=== PATIENT | female | born 1990 | race Caucasian/White ===

== ENCOUNTER 2023-08-14 06:00 | Outpatient (OUT) | payer OTHER, SELFPAY ==
--- NOTE | 2023-08-14 | XR_ITS ---
The [address] [address] Patient Name: OSWALDO DAILEY MRN: [id number] date: 1990 Sex: F Assigned Patient Location: LAB Current Patient Location: LAB Accession/Order Number: [id number] Exam Date: 08/14/2023 13:48 Report Date: 08/15/2023 08:16 At the request of: REGINALD TEE Procedure: XR ankle LING min 3V EXAMINATION: XR ankle LING min 3V HISTORY: G89.29 ; bilateral ankle pain, no known injury COMPARISON: No relevant comparison available. FINDINGS: RIGHT FINDINGS: BONES: No significant arthropathy or acute abnormality. SOFT TISSUES: No visible soft tissue swelling. OTHER: Negative. LEFT FINDINGS: BONES: No significant arthropathy or acute abnormality. SOFT TISSUES: No visible soft tissue swelling. OTHER: Negative. XR/XR ankle LING min 3V IMPRESSION: RIGHT CONCLUSION: No acute bone abnormality or appreciable degenerative changes. LEFT CONCLUSION: No acute bone abnormality or appreciable degenerative changes. Electronically authenticated by: BRENNAN GUNTER Date: 08/15/2023 08:16
== END 2023-08-14 06:01 | disposition home or self-care (01) ==
LOC: LAB 08-16 08:12
PROVIDERS: PCP Nurse Practitioner Family; Visit Provider Nurse Practitioner Family
DX: M25.571 Pain in right ankle and joints of right foot (principal); M25.572 Pain in left ankle and joints of left foot; G89.29 Other chronic pain
CPT/HCPCS: 73610

== ENCOUNTER 2024-03-26 07:44 | Outpatient (OUT) | payer OTHER, SELFPAY ==
--- OUTSIDE RECORDS SUMMARY | 2024-03-26 08:04 | XMS_ITS | CCD ---
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 Primary Care Unavailable Unavailable Primary Care Provider Unavailabl e Unavailable Primary Care Provider Unavailabl e JAZMÍN MATHIAS Referring Unavailable STEWBRYANJAZMÍN C Referring Unavailable STEWJAZMÍN C Referring Unavailable STEWJAZMÍN C Referring Unavailable POLI WILSON Referring Unavailable STEWJAZMÍN C Referring Unavailable KAIT GARCIA Referring Unavail able STEWJAZMÍN DOWNEY Referring Unavailable KAIT GARCIA Referring Unavail able STEW JAZMÍN C Admitting Unavailable KAIT GARCIA Attending Unavail able Lashell Fernandez Unavailable GOPI MORALES Attending Unavailable LORA KNOTT Attending Unavailable LASHELL FERNANDEZ Referring Unavailab le Medications Current Medications Medication Drug Class(es) Dates Sig (Normalized) Sig (Original) cephalexin 500 mg oral capsule (1 source) Cephalosporin Antibacterial Start: 03-28-2022 End: 04-04-2022 take 1 capsule by mouth twice daily cephALEXin (KEFLEX) 500 MG capsule Indications: Infection of superficial incisional site of obstetric surgical wound Take 1 capsule by mouth 2 times daily for 7 days 14 capsule 0 03/28/2022 04/04/2022 Active docusate sodium 100 mg oral capsule (1 source) Start: 03-09-2022 take 1 capsule by mouth twice daily docusate sodium (COLACE) 100 MG capsule Take 1 capsule by mouth 2 times daily 30 capsule 0 03/09/2022 Active ferrous sulfate 325 mg oral tablet (2 sources) Start: 02-15-2022 take 1 tablet by mouth once daily ferrous sulfate (IRON 325) 325 (65 Fe) MG tablet Take 1 tablet by mouth daily 30 tablet 6 02/15/2022 Active ibuprofen 800 mg oral tablet (1 source) Nonsteroidal Anti-inflammatory Drug Start: 03-09-2022 take 1 tablet by mouth every eight hours as needed for pain ibuprofen (ADVIL;MOTRIN) 800 MG tablet Take 1 tablet by mouth every 8 hours as needed for Pain 120 tablet 0 03/09/2022 Active [place] (No Known Home Meds) (1 source) Start: 03-19-2024 [place] (No Known Home Meds) Active March 19, 2024 12:00am MV-Min-Fe Fum-FA-DHA ( 1 PO) (5 sources) MV-Min-Fe Fum-FA-DHA ( 1 PO) Take by mouth 0 Active simethicone 80 mg chewable tablet (1 source) Start: 03-09-2022 take 1 tablet by mouth every six hours as needed simethicone (MYLICON) 80 MG chewable tablet Take 1 tablet by mouth every 6 hours as needed (gas) 30 tablet 0 03/09/2022 Active Completed/Discontinued Medications Medication Drug Class(es) Dates Sig (Normalized) Sig (Original) amoxicillin 875 mg / clavulanate 125 mg oral tablet (1 source) Penicillin-class Antibacterial Start: 12-29-2023 End: 03-19-2024 take 1 tablet by mouth twice daily Amoxicillin-Pot Clavulanate Discontinued 1 TAB PO Twice daily 20 December 29, 2023 1:00am March 19, 2024 8:05am escitalopram 10 mg oral tablet (7 sources) Serotonin Reuptake Inhibitor Start: 12-28-2023 End: 03-19-2024 take 10 mg by mouth once daily Escitalopram Oxalate Discontinued 10 MG PO Daily December 28, 2023 1:00am March 19, 2024 8:13am Start: 10-25-2021 take 1 tablet by cathryn th once daily escitalopram (LEXAPRO) 10 MG tablet TAKE 1 TABLET BY MOUTH EVERY DAY 30 tablet 11 08/23/2022 Active Problems Active Problems Problem Classification Problem Date Documented Da te Episodic/Chronic Anxiety disorders (1 source) Anxiety; Translations: [Anxiety disorder, unspecified] 12-28-2023 Chronic Malaise and fatigue (2 sources) Fatigue; Translations: [Other fatigue] 03-19-2024 Episodic Mood disorders (1 source) Depressive disorder; Translations: [Depression] 12-28-2023 Chronic Mood disorders (2 sources) Disturbance in mood; Translations: [Emotional lability] 03-19-2024 Episodic Other complications of ; puerperium affecting management of mother (1 source) Infection of obstetric surgical wound ; Translations: [Infection of obstetric surgical wound, superficial incisional site] Episodic Other complications of ; puerperium affecting management of mother (2 sources) delivery - delivered; Translations: [Encounter for delivery without indication] 03-08-2022 Episodic Other ear and sense organ disorders (1 source) Unspecified hearing loss, unspecified ear Chronic Other nervous system disorders (4 sources) Chronic pain; Translations: [Other chronic pain] 12-28-2023 Chronic Other nutritional; endocrine; and metabolic disorders (1 source) Failure to lose weight; Translations: [Other symptoms and signs concerning food and fluid intake] 03-19-2024 Episodic Other nutritional; endocrine; and metabolic disorders (1 source) Other symptoms and signs concerning food and fluid intake; Translations: [Other symptoms concerning nutrition, metabolism, and development] 03-19-2024 Episodic Other upper respiratory infections (2 sources) Maxillary sinusitis; Translations: [Chronic maxillary sinusitis] 12-29-2023 Chronic Residual codes; unclassified (1 source) Gestation period, 25 weeks; Translations: [25 weeks gestation of ] Episodic Residual codes; unclassified (2 sources) Gestation period, 40 weeks; Translations: [40 weeks gestation of ] 03-07-2022 Episodic Residual codes; unclassified (1 source) History of emergency section; Translations: [History of uterine scar from previous surgery] 03-07-2022 Episodic Past or Other Problems Problem Classification Problem Date Documented Da te Episodic/Chronic Other complications of ; puerperium affecting management of mother (1 source) Infection of obstetric surgical wound, superficial incisional site; Translations: [Infection of obstetric surgical wound, superficial incisional site] Onset: 03-28-2022 Episodic Other complications of ; puerperium affecting management of mother (1 source) Encounter for delivery without indication; Translations: [Encounter for delivery without indication] Onset: 03-08-2022 Episodic Other complications of (1 source) Uterine size-date discrepancy, third trimester; Translations: [Uterine size-date discrepancy, third trimester] Onset: 02-10-2022 Episodic Other and delivery including normal (8 sources) Normal ; Translations: [Encounter for supervision of other normal , first trimester] Onset: 08-24-2021 Episodic Other screening for suspected conditions (not mental disorders or infectious disease) (1 source) Encounter for screening, unspecified; Translations: [Encounter for screening, unspecified] Onset: 10-25-2021 Episodic Prolonged (1 source) Post-term ; Translations: [Post-term ] Onset: 03-07-2022 Episodic Residual codes; unclassified (1 source) 40 weeks gestation of ; Translations: [40 weeks gestation of ] Onset: 03-07-2022 Episodic Residual codes; unclassified (1 source) 36 weeks gestation of ; Translations: [36 weeks gestation of ] Onset: 02-10-2022 Episodic Residual codes; unclassified (1 source) 25 weeks gestation of ; Translations: [25 weeks gestation of ] Onset: 12-29-2021 Episodic Residual codes; unclassified (1 source) 30 weeks gestation of ; Translations: [30 weeks gestation of ] Onset: 12-29-2021 Episodic Residual codes; unclassified (1 source) 21 weeks gestation of ; Translations: [21 weeks gestation of ] Onset: 10-25-2021 Episodic NEGATED: Highlighted row has been ruled out!Unclassified (3 sources) No known active problems 11-23-2021 Results Test Name Value Interpretation Reference Range Facility HPV DNA High Riskon 08-25-20 22 HPV Interp Normal [facility] Comment on above: Result Comment: This test amplifies and detects DNA of 14 high-risk HPV types associated with cervical cancer and its precursor lesions (HPV types 16,18, 31, 33, 35, 39, 45, 51, 52, 56, 58, 59, 66, and 68). Sensitivity may be affected by specimen collection methods, stage of infection, and the presence of interfering substances. Results should be interpreted in conjunction with other available laboratory and clinical data. A negative high-risk HPV result does not exclude the possibility of future cytologic HSIL or underlying CIN2-3 or cancer. This test is intended for medical purposes only and is not valid for the evaluation of suspected sexual abuse or for other forensic purposes. Performed By: #### H PVH #### [address] [address] [employer] Bob[employer] Winder: Eric Neville MD HPV Type 16 Not detected [facility] Comment on above: Performed By: #### H PVH #### [address] [address] [employer] Winder: Eric Neville MD HPV Type 18 Not detected [facility] Comment on above: Performed By: #### H PVH #### [address] [address] [employer] Winder: Eric Neville MD Other High Risk HPV Not detected [facility] Comment on above: Performed By: #### H PVH #### [address] [address] [employer] Winder: Eric Neville MD HPV DNA High Riskon 08-24-20 22 Source .CERVIX [facility] Comment on above: Performed By: #### H PVH #### [address] [address] [employer] Winder: Eric Neville MD HPV Sample .THIN PREP [facility] Comment on above: Performed By: #### H PVH #### [address] [address] [employer] Winder: Eric Neville MD Cytologyon 08-23-2022 Cytology (NOTE) INTERPRETATION Cervical material, (ThinPrep vial, Imaging-assisted review): Specimen Adequacy: Satisfactory for evaluation. -Endocervical/transf ormation zone component is absent. Descriptive Diagnosis: Negative for intraepithelial lesion or malignancy. Administrative Program Specialist: ROX [place](ASCP) Electronically Signed Out ss/08/29/2022 Procedure/Addendum HPV Procedure Report Date Ordered: 08/24/2022 Status: Signed Out Date Complete: 08/25/2022 By: System Interface Date Reported: 08/25/2022 Sample: HPV Type 16 Result: Not Detected Ref Range: (Not Detected) Sample: HPV Type 18 Result: Not Detected Ref Range: (Not Detected) Sample: Other High Risk HPV Result: Not Detected Ref Range: (Not Detected) Sample: HPV Interp Result: Ref Range: (Not Detected) This test amplifies and detects DNA of 14 high-risk HPV types associated with cervical cancer and its precursor lesions (HPV types 16,18, 31, 33, 35, 39, 45, 51, 52, 56, 58, 59, 66, and 68). Sensitivity may be affected by specimen collection methods, stage of infection, and the presence of interfering substances. Results should be interpreted in conjunction with other available laboratory and clinical data. A negative high-risk HPV result does not exclude the possibility of future cytologic HSIL or underlying CIN2-3 or cancer. This test is intended for medical purposes only and is not valid for the evaluation of suspected sexual abuse or for other forensic purposes. 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 Co-Test: ThinPrep Pap with high risk HPV testing GYNECOLOGIC CYTOLOGY REPORT Patient Name: OSWALDO DAILEY [facility] Rec: [id number] Path Number: [id number] [facility] [address] [place] [id number] [facility] Comment on above: Performed By: #### P PPVP #### [employer] [address] [place] [id number] Machine Bob[employer] Winder: Eric Neville MD Cult,Woundon 03-31-2022 Cult,Wound Specimen Description .INCISION Direct Exam RARE NEUTROPHILS MANY GRAM POSITIVE COCCI IN PAIRS FEW GRAM NEGATIVE RODS Culture CITROBACTER BRAAKII LIGHT GROWTH ESCHERICHIA COLI LIGHT GROWTH NORMAL SKIN LILIANA MODERATE GROWTH Report Status FINAL 03/31/2022 SUSCEPTIBILITY Organism CITROBACTER BRAAKII Method ABIODUN Aztreonam <=1 SUSCEPTIBLE Cefazolin >=64 RESISTANT Ceftriaxone <=1 SUSCEPTIBLE Ciprofloxacin <=0.25 SUSCEPTIBLE Gentamicin <=1 SUSCEPTIBLE Tobramycin <=1 SUSCEPTIBLE Trimethoprim/Sulfa <=20 SUSCEPTIBLE Piperacillin/Tazobac valencia <=4 SUSCEPTIBLE SUSCEPTIBILITY Organism ESCHERICHIA COLI Method ABIODUN Ampicillin <=2 SUSCEPTIBLE Aztreonam <=1 SUSCEPTIBLE Cefazolin <=4 SUSCEPTIBLE Ceftriaxone <=1 SUSCEPTIBLE Ciprofloxacin <=0.25 SUSCEPTIBLE ESBL NEGATIVE Gentamicin <=1 SUSCEPTIBLE Tobramycin <=1 SUSCEPTIBLE Trimethoprim/Sulfa <=20 SUSCEPTIBLE Piperacillin/Tazobac valencia <=4 SUSCEPTIBLE Susceptible [facility] Comment on above: Performed By: #### W DC #### [facility] [address], [place] [id number] Machine Bob[employer] Winder: Eric Neville MD Hemoglobinon 03-08-2022 Hemoglobin (Bld) [Mass/Vol] 8.7 g/dL Low 11.9-15.1 [facility] Comment on above: Performed By: #### H GB #### [address] [place], [place] [id number] Machine [employer] Winder: Clint Al MD CBC with Diffon 03-07-2022 Abs. Basophil 0.04 k/uL Normal 0.00-0.20 [facility] Comment on above: Performed By: #### I PF, CDP #### [address] [place] [address] Machine Bobbin Winder: Clint Al MD Abs.Imm.Granulocyte 0.08 k/uL Normal 0.00-0.30 [facility] Comment on above: Performed By: #### I PF, CDP #### [address] [place], [place] [id number] Machine Bobbin Winder: Clint Al MD Abs.Neutrophil (Seg) 6.62 k/uL Normal 1.50-8.10 [facility] Comment on above: Performed By: #### I PF, CDP #### [address] [place] [address] Machine Bobbin Winder: Clint Al MD Basophils/100 WBC (Bld) 1 % Normal 0-2 [facility] Comment on above: Performed By: #### I PF, CDP #### [address] [place], [place] [phone] Machine Bob[employer] Winder: Clint Al MD Eosinophils (Bld) [#/Vol] 0.06 10*3/uL Normal 0.00-0.44 [facility] Comment on above: Performed By: #### I PF, CDP #### [address] [place], [facility]83 Machine [employer] Winder: Clint Al MD Eosinophils/100 WBC (Bld) 1 % Normal 1-4 [facility] Comment on above: Performed By: #### I PF, CDP #### [address] [place] [id number] Machine [employer]bin Winder: Clint Al MD Erythrocyte distribution width (RBC) [Ratio] 12.8 % Normal 11.8-14.4 [facility] Comment on above: Performed By: #### I PF, CDP #### [address] [place], [facility]83 Machine [employer] Winder: Clint Al MD Hematocrit (Bld) [Volume fraction] 32.6 % Low 36.3-47.1 [facility] Comment on above: Performed By: #### I PF, CDP #### [address] [place] [id number] Machine [employer] Winder: Clint Al MD Hemoglobin (Bld) [Mass/Vol] 10.8 g/dL Low 11.9-15.1 [facility] Comment on above: Performed By: #### I PF, CDP #### [address] [place] [address] Machine [employer] Winder: Clint Al MD Immature granulocytes/100 WBC (Bld) 1 % High 0 [facility] Comment on above: Performed By: #### I PF, CDP #### [address] [place], [facility]83 Machine [employer] Winder: Clint Al MD Lymphocytes (Bld) [#/Vol] 1.35 10*3/uL Normal 1.10-3.70 [facility] Comment on above: Performed By: #### I PF, CDP #### [facility] [address] [place], [facility]83 Machine [employer] Winder: Clint Al MD Lymphocytes/100 WBC (Bld) 16 % Low 24-43 [facility] Comment on above: Performed By: #### I PF, CDP #### [facility] [address] [place], [facility]83 Machine [employer] Winder: Clint Al MD MCH (RBC) [Entitic mass] 30.9 pg Normal 25.2-33.5 [facility] Comment on above: Performed By: #### I PF, CDP #### [address] [place], [facility]83 Machine [employer] Winder: Clint Al MD MCHC (RBC) [Mass/Vol] 33.1 g/dL Normal 28.4-34.8 [facility] Comment on above: Performed By: #### I PF, CDP #### [address] [place], [facility]83 Machine Bobbin Winder: Clint Al MD MCV (RBC) [Entitic vol] 93.1 fL Normal 82.6-102.9 M [facility] Comment on above: Performed By: #### I PF, CDP #### [address] [place], [facility]83 Machine [employer] Winder: Clint Al MD Monocytes (Bld) [#/Vol] 0.57 10*3/uL Normal 0.10-1.20 [facility] Comment on above: Performed By: #### I PF, CDP #### [facility] [address] [place] [address] Dr. [place], [facility]83 Machine [employer] Winder: Clint Al MD Monocytes/100 WBC (Bld) 7 % Normal 3-12 M [facility] Comment on above: Performed By: #### I PF, CDP #### [facility] [address] [place], [place] [phone] Machine [employer] Winder: Clint Al MD Neutrophil (Seg) 76 % High 36-65 [facility] Comment on above: Performed By: #### I PF, CDP #### [facility] [address] [place] [address] Machine [employer] Winder: Clint Al MD NRBC Automated 0.0 per 100 WBC Normal 0.0 [facility] Comment on above: Performed By: #### I PF, CDP #### [facility] [address] [place] [address] Dr. [place], [place] [phone] Machine Bob[employer] Winder: Clint Al MD Platelet Count See Reflexed IPF Result Normal 138-453 [facility] Comment on above: Performed By: #### I PF, CDP #### [address] [place], [place] [phone] [employer] Winder: Clint Al MD RBC (Bld) [#/Vol] 3.50 10*6/uL Low 3.95-5.11 [facility] Comment on above: Performed By: #### I PF, CDP #### [facility] [address] [place] [address] Dr. [place], [place] [id number] Machine [employer] Winder: Clint Al MD WBC (Bld) [#/Vol] 8.7 10*3/uL Normal 3.5-11.3 [facility] Comment on above: Performed By: #### I PF, CDP #### [facility] [address] [place] [address] [place] [address] Machine [employer] Winder: Clint Al MD Drug Scr, Abuse, Uron 2021 Amphetamine(s),Ur Negative Normal NEG [facility] Comment on above: Performed By: #### D AU #### [facility] [address] [place], [place] [id number] Machine Bobbin Winder: Clint Al MD Barbiturate(s),Ur Negative Normal NEG [facility] Comment on above: Performed By: #### D AU #### [facility] [address] [place], [place] [phone] Machine Bob[employer] Winder: Clint Al MD Benzodiazepine(s) Negative Normal [facility] Comment on above: Performed By: #### D AU #### [facility] [address] [place], [place] [phone] Machine [employer] Winder: Clint Al MD Buprenorphrine, Ur Negative Normal NEG [facility] Comment on above: Performed By: #### D AU #### [facility] [address] [place] [address] Machine [employer] Winder: Clint Al MD Cannabinoid(s),Ur Negative Normal [facility] Comment on above: Performed By: #### D AU #### [facility] [address] [place], [place] [phone] Machine Bob[employer] Winder: Clint Al MD Cocaine Metabolite Negative [facility] Comment on above: Performed By: #### D AU #### [facility] [address] [place], [place] [phone] Machine Bobbin Winder: Clint Al MD Methadone Ql (U) Negative Normal NEG [facility] Comment on above: Performed By: #### D AU #### [facility] [address] [place], [place] [phone] Machine Bob[employer] Winder: Clint Al MD Methamphetamine, Ur Negative Normal [facility] Comment on above: Performed By: #### D AU #### [facility] [address] [place], [place] [phone] Machine Bobbin Winder: Clint Al MD Opiate(s), Ur Negative Normal NEG [facility] Comment on above: Performed By: #### D AU #### [facility] [address] [place], [place] [id number] Machine Bobbin Winder: Clint Al MD Oxycodone, Urine Negative Normal NEG [facility] Comment on above: Performed By: #### D AU #### [facility] [address] [place], [place] 2198583 Machine Bobbin Winder: Clint Al MD Phencyclidine, Ur Negative Normal NEG [facility] Comment on above: Performed By: #### D AU #### [facility] [address] [place] [address] Dr. [place], [place] [phone] Machine Bobbin Winder: Clint Al MD Propoxyphene,Urine Negative Normal NEG [facility] Comment on above: Performed By: #### D AU #### [address] [place], [place] [phone] Machine [employer] Winder: Clint Al MD Tricyclic antidepressants Screen Ql (U) Negative Normal NEG [facility] Comment on above: Result Comment: Drug screen results are to be used for medical purposes only. All positive results are unconfirmed. Testing for employment or legal uses should be sent to a reference laboratory for confirmation. Performed By: #### D AU #### [facility] [address] [place] [address] Dr. [place], [place] [phone] [employer] Winder: Clint Al MD PLT, Immature Fract.on 03-07 Platelet, Fluoresc. 147 k/uL Normal 138-453 [facility] Comment on above: Performed By: #### I PF, CDP #### [facility] [address] [place], [place] [id number] Machine [employer] Winder: Clint Al MD PLT, Immature Fract. 8.7 % Normal 1.1-10.3 [facility] Comment on above: Performed By: #### I PF, CDP #### [facility] [address] [place] [address] Machine Bobbin Winder: Clint Al MD US BIOPHYSICAL PROFILE WO NON STRESS TESTINGon 03-07-2022 US BIOPHYSICAL PROFILE WO NON STRESS TESTING BPP= 8/8 Vertex Posterior/fundal placenta Hyperechoic appearing fluid SANDRO= 17.5 cm ? Interpreted by: Kait Alston DO Signed by: Kait Alston DO 03/07/22 Final result Normal [facility] Rule Out Grp.B Strepon 02-13 Rule Out Grp.B Strep Specimen Descriptio n .VAGINA Culture NEGATIVE FOR GROUP B STREPTOCOCCI Report Status FINAL 02/13/2022 Normal [facility] Comment on above: Performed By: #### R OGBS #### [facility] [address], [place] [phone] Machine [employer] Winder: Eric Neville MD US OB FOLLOW UP TRANSABDOMIN AL APPROACHon 02-10-2022 US OB FOLLOW UP TRANSABDOMINAL APPROACH Growth Ultrasound ? Viable 37 week, 5 day SIUP EFW= 75% Ac=96% Vertex Posterior placenta SANDRO= 20.6 cm pyelectasis RT= 5.2mm Lt=3.5mm ? ? Interpreted by: Kait Alston DO Signed by: Kait Alston DO 02/10/22 Final result Normal [facility] US OB FOLLOW UP TRANSABDOMIN AL APPROACHon 01-10-2022 US OB FOLLOW UP TRANSABDOMINAL APPROACH VIABLE 32W1D SIUP EFW = 72% AC = 94% BREECH POSTERIOR PLACENTA CL = 3.7 CM FHR = 140 BPM SANDRO = 14.4 CM MILD PYELECTASIS. RT = 6 MM AND LT = 5 MM. Interpreted by: Kait Alston DO Signed by: Kait Alston DO 01/10/22 Final result Normal [facility] CBC with Auto Differentialon 12-29-2021 Absolute Eos # 0.14 [facility] th Absolute Immature Granulocyte 0.11 [facility] Absolute Lymph # 1.39 [facility] [place] # 0.65 [facility] lth Basophils (Bld) [#/Vol] 0.05 10*3/uL [facility] Basophils/100 WBC (Bld) 1 % 0 - 2 % [facility] Eosinophils/100 WBC (Bld) 2 % 1 - 4 % [facility] Hematocrit (Bld) [Volume fraction] 32.0 % Low 36.3 - 47.1 % [facility] Hemoglobin.gastrointesti nal spec 1 Ql (Stl) 10.4 g/dL Low 11.9 - 15.1 g/dL [facility] Immature granulocytes/100 WBC (Bld) 1 % High 0 [facility] Interpretation and review of laboratory results Abnormal [facility] Lymphocytes/100 WBC (Bld) 17 % Low 24 - 43 % [facility] MCH (RBC) [Entitic mass] 31.0 pg 25.2 - 33.5 pg [facility] MCHC (RBC) [Mass/Vol] 32.5 g/dL 28.4 - 34.8 g/dL [facility] MCV (RBC) [Entitic vol] 95.2 fL 82.6 - 102.9 fL [facility] Monocytes/100 WBC (Bld) 8 % 3 - 12 % [facility] NRBC Automated 0.0 0.0 per 100 WBC [facility] Platelet distribution width (Bld) [Ratio] 12.8 % 11.8 - 14.4 % [facility] Platelet mean volume (Bld) [Entitic vol] 11.9 fL 8.1 - 13.5 fL [facility] Platelets (Bld) [#/Vol] 161 10*3/uL [facility] RBC (Bld) [#/Vol] 3.36 10*6/uL Low 3.95 - 5.1 1 m/uL [facility] Segmented neutrophils/100 WBC (Bld) 71 % High 36 - 65 % [facility] Segs [facility] 5.91 [facility] (Bld) [#/Vol] 8.3 10*3/uL [facility] CBC with Diffon 12-29-2021 Abs. Basophil 0.05 k/uL Normal 0.00-0.20 [facility] Comment on above: Performed By: #### C DP, GLUSC #### [employer] [address] [place] [id number] [employer] Winder: Eric Neville MD Abs.Imm.Granulocyte 0.11 k/uL Normal 0.00-0.30 [facility] Comment on above: Performed By: #### C DP, GLUSC #### [address] [address] [employer] Winder: Eric Neville MD Abs.Neutrophil (Seg) 5.91 k/uL Normal 1.50-8.10 [facility] Comment on above: Performed By: #### C DP, GLUSC #### [address] [address] [employer] Winder: Eric Neville MD Basophils/100 WBC (Bld) 1 % Normal 0-2 M [facility] Comment on above: Performed By: #### C DP, GLUSC #### [address] [address] [employer] W[employer]: Eric Neville MD Eosinophils (Bld) [#/Vol] 0.14 10*3/uL Normal 0.00-0.44 [facility] Comment on above: Performed By: #### C DP, GLUSC #### [address] [address] [employer]: Eric Neville MD Eosinophils/100 WBC (Bld) 2 % Normal 1-4 [facility] Comment on above: Performed By: #### C DP, GLUSC #### [address] [address] [employer] W[employer]: rEic Neville MD Erythrocyte distribution width (RBC) [Ratio] 12.8 % Normal 11.8-14.4 [facility] Comment on above: Performed By: #### C DP, GLUSC #### [address] [address] [employer] W[employer]: Eric Neville MD Hematocrit (Bld) [Volume fraction] 32.0 % Low 36.3-47.1 [facility] Comment on above: Performed By: #### C DP, GLUSC #### [address] [address] [employer] W[employer]: Eric Neville MD Hemoglobin (Bld) [Mass/Vol] 10.4 g/dL Low 11.9-15.1 [facility] Comment on above: Performed By: #### C DP, GLUSC #### [address] [address] [employer]: Eric Neville MD Immature granulocytes/100 WBC (Bld) 1 % High 0 [facility] Comment on above: Performed By: #### C BRYAN GLUSC #### [place] [address] [employer]: Eric Neville MD Lymphocytes (Bld) [#/Vol] 1.39 10*3/uL Normal 1.10-3.70 [facility] Comment on above: Performed By: #### C BRYAN GLUSC #### [address] [address] [employer]: Eric Neville MD Lymphocytes/100 WBC (Bld) 17 % Low 24-43 [facility] Comment on above: Performed By: #### C DP, GLUSC #### [place] [address] [employer]: Eric Neville MD MCH (RBC) [Entitic mass] 31.0 pg Normal 25.2-33.5 [facility] Comment on above: Performed By: #### C DP, GLUSC #### [address] [address] [employer]: Eric Neville MD MCHC (RBC) [Mass/Vol] 32.5 g/dL Normal 28.4-34.8 [facility] Comment on above: Performed By: #### C DP, GLUSC #### [place] [address] [employer]: Eric Neville MD MCV (RBC) [Entitic vol] 95.2 fL Normal 82.6-102.9 [facility] Comment on above: Performed By: #### C DP, GLUSC #### [place] [address] [employer]: Eric Neville MD Monocytes (Bld) [#/Vol] 0.65 10*3/uL Normal 0.10-1.20 [facility] Comment on above: Performed By: #### C DP, GLUSC #### [place] [address] [employer]: Eric Neville MD Monocytes/100 WBC (Bld) 8 % Normal 3-12 M [facility] Comment on above: Performed By: #### C DP, GLUSC #### [place] [address] [employer]: Eric Neville MD Neutrophil (Seg) 71 % High 36-65 [facility] Comment on above: Performed By: #### C DP, GLUSC #### [place] [address] [employer]: Eric Neville MD NRBC Automated 0.0 per 100 WBC Normal 0.0 [facility] Comment on above: Performed By: #### C DP, GLUSC #### [place] [address] [employer]: Eric Neville MD Platelet mean volume (Bld) [Entitic vol] 11.9 fL Normal 8.1-13.5 [facility] Comment on above: Performed By: #### C DP, GLUSC #### [address] [address] [employer]: Eric Neville MD Platelets (Bld) [#/Vol] 161 10*3/uL Normal 138-453 [facility] Comment on above: Performed By: #### C DP, GLUSC #### [address] [address] [employer]: Eric Neville MD RBC (Bld) [#/Vol] 3.36 10*6/uL Low 3.95-5.11 [facility] Comment on above: Performed By: #### C DP, GLUSC #### [address] [address] [employer]: Eric Neville MD WBC (Bld) [#/Vol] 8.3 10*3/uL Normal 3.5-11.3 [facility] Comment on above: Performed By: #### C DP, GLUSC #### [address] [address] [employer] W[employer]: Eric Neville MD Glucose Jaison Scr 50gon 2021 Glucose [Mass/Vol] 119 mg/dL Normal 70-135 [facility] Comment on above: Performed By: #### C DP, GLUSC #### [address] [address] [employer]: Eric Neville MD Glu Administered via Glucola Normal [facility] Comment on above: Performed By: #### C DP, GLUSC #### [address] [address] [employer] Winder: Eric Neville MD Glucose Tolerance, 1 Hron GLU ADMN Glucola [facility] Glucose tolerance screen 50g 119 mg/dL 70 - 135 mg/dL [facility] US OB 14 PLUS WEEKS SINGLE O R FIRST GESTATIONon 11-21-2021 US OB 14 PLUS WEEKS SINGLE OR FIRST GESTATION Anatomy Ultrasound ? Viable 21 week, 4 day SIUP Size C/W dates Breech Posterior placenta Peripheral PCI measures 1.6 cm from placental edge Male Cx length= 4.9 cm pyelectasis Rt=4.1mm Lt=4.0mm Right maternal ovary seen and appears WNL Left maternal ovary seen and appears WNL ? Interpreted by: Kait Alston DO Signed by: Kait Alston DO 11/21/21 Final result Normal [facility] Chlamydia/GC,DNA Ampon 08-25 Chlamydia Probe Negative Normal NEG [facility] Comment on above: Result Comment: CHLA MYDIA TRACHOMATIS DNA not detected by nucleic acid amplification. This test is intended for medical purposes only and is not valid for the evaluation of suspected sexual abuse or for other forensic purposes. In certain contexts, culture may be required to meet applicable laws and regulations for diagnosis of C. trachomatis and N. gonorrhoeae infections. Per 2014 CDC recommendations, this test does not include confirmation of positive results by an alternative nucleic acid target. Performed By: #### S WCGP #### [employer] [address] [place] [id number] [employer] Winder: Eric Neville MD Gonorrhea Probe Negative Normal NEG [facility] Comment on above: Result Comment: NEIS SERIA GONORRHOEAE DNA not detected by nucleic acid amplification. This test is intended for medical purposes only and is not valid for the evaluation of suspected sexual abuse or for other forensic purposes. In certain contexts, culture may be required to meet applicable laws and regulations for diagnosis of C. trachomatis and N. gonorrhoeae infections. Per 2014 CDC recommendations, this test does not include confirmation of positive results by an alternative nucleic acid target. Performed By: #### S WCGP #### [employer] [address] [place] [id number] [employer] Winder: Eric Neville MD HIV ScreenOrdered By: Sondra Mathias on 08-12-2021 HIV Ag/Ab Non-Reactive NONREACTIVE [facility] Work Phone: Comment on above: No laboratory eviden ce of HIV infection. If acute HIV infection is suspected, consider testing for HIV-1 RNA. [employer] Phone: Hepatitis C AntibodyOrdered By: Jazmín Mathias on 08-12-2021 Hepatitis C Ab Non-Reactive NONREACTIVE [employer] [facility] Work Phone: Comment on above: The hepatitis C procedure used in our laboratory is a Chemiluminescent test specific for three recombinant HCV antigens. A negative anti-HCV result indicates that the antibodies to hepatitis C virus are not present at this time. Individuals with reactive anti-HCV should be considered infected and infectious until proven otherwise. Confirmation of all equivocal or reactive results is recommended by ordering HCV RNA by PCR. [employer] Phone: PROFILE IOrdered By : Jazmín Mathias on 08-12-2021 Absolute Eos # 0.32 [facility] Work Phone: Absolute Immature Granulocyte 0.04 [facility] Work Phone: Absolute Lymph # 1.98 [facility] Work Phone: Absolute [place] # 0.61 [employer] [facility] Work Phone: Basophils (Bld) [#/Vol] 0.04 10*3/uL [facility] Phone: Basophils/100 WBC (Bld) 1 % 0 - 2 % M [facility] [employer] Phone: Differential Type NOT REPORTED [facility] Phone: Eosinophils/100 WBC (Bld) 4 % 1 - 4 % [facility] Phone: Hematocrit (Bld) [Volume fraction] 37.1 % 36.3 - 47.1 % [facility] Phone: Hemoglobin.gastrointesti nal spec 1 Ql (Stl) 11.9 g/dL 11.9 - 15.1 g/dL [employer] Phone: Hepatitis B Surface Ag Non-Reactive NONREACTIVE [employer] Phone: Immature granulocytes/100 WBC (Bld) 1 % High 0 [employer] Phone: Interpretation and review of laboratory results Abnormal [facility] Phone: Lymphocytes/100 WBC (Bld) 25 % 24 - 43 % [facility] Phone: MCH (RBC) [Entitic mass] 29.8 pg 25.2 - 33.5 pg [facility] Phone: MCHC (RBC) [Mass/Vol] 32.1 g/dL 28.4 - 34.8 g/dL [employer] Phone: MCV (RBC) [Entitic vol] 92.8 fL 82.6 - 102.9 fL [employer] Phone: Monocytes/100 WBC (Bld) 8 % 3 - 12 % [facility] Phone: NRBC Automated 0.0 0.0 per 100 WBC [employer] Phone: Platelet distribution width (Bld) [Ratio] 12.5 % 11.8 - 14.4 % [facility] Phone: Platelet Estimate NOT REPORTED [employer] Phone: Platelet mean volume (Bld) [Entitic vol] 11.6 fL 8.1 - 13.5 fL [employer] Phone: Platelets (Bld) [#/Vol] 212 10*3/uL [employer] Phone: RBC (Bld) [#/Vol] 4.00 10*6/uL 3.95 - 5.1 1 m/uL [employer] Phone: RBC (Bld) [#/Vol] NOT REPORTED [facility] Phone: Rubella virus IgG Ql (S) 166.2 IU/mL [employer] Phone: Comment on above: REFERENCE RANGE: <5.0 NON-REACTIVE (non-immune) 5.0 TO 9.9 EQUIVOCAL >=10.0 REACTIVE (immune) Segmented neutrophils/100 WBC (Bld) 61 % 36 - 65 % [employer] Work Phone: Segs Absolute 4.90 [facility] Work Phone: T. pallidum, IgG Non-Reactive NONREACTIVE [employer] Work Phone: Comment on above: T. pallidum antibodies are not detected. There is no serological evidence of infection with T. pallidum (early primary syphilis cannot be excluded). Retest in 2-4 weeks if syphilis is clinically suspect. WBC (Bld) [#/Vol] 7.9 10*3/uL [employer] Phone: WBC (Bld) [#/Vol] NOT REPORTED [employer] Phone: [employer] Work Phone: TYPE AND SCREENOrde red By: Jazmín Mathias on 08-12-2021 ABO/Rh Positive [employer] Work Phone: [employer] Work Phone: UrinalysisOrdered By: Sondra Mathias on 08-12-2021 Bilirubin Urine Negative NEGATIVE [facility] Work Phone: Color, UA Yellow Yellow [employer] Work Phone: Glucose, Ur Negative NEGATIVE [employer] Work Phone: Ketones Ql (U) Negative NEGATIVE [employer] Work Phone: Leukocyte esterase Test strip Ql (U) Negative NEGATIVE [employer] Work Phone: Nitrite, Urine Negative NEGATIVE [employer] Work Phone: pH, UA 7.0 [employer] Phone: Protein, UA Negative NEGATIVE [employer] Work Phone: Specific [place], UA 1.009 [employer] Phone: Turbidity UA Clear Clear [facility] [employer] Work Phone: Urinalysis Comments Microscopic exam not performed based on chemical results unless requested in original order. [facility] [employer] Work Phone: Urine Hgb Negative NEGATIVE [facility] [employer] Work Phone: Urobilinogen, Urine Normal Normal [facility] [employer] Work Phone: [facility] [employer] Work Phone: Urine Drug Screen, Comprehen siveOrdered By: Jazmín Mathias on 08-12-2021 Amphetamine Screen, Ur Negative NEGATIVE [facility] [employer] Work Phone: Comment on above: (Positive cutoff 1000 ng/mL) Barbiturate Screen, Ur Negative NEGATIVE [facility] [employer] Work Phone: Comment on above: (Positive cutoff 200 ng/mL) Benzodiazepine Screen, Urine Negative NEGATIVE [facility] Work Phone: Comment on above: (Positive cutoff 200 ng/mL) Buprenorphine Urine NOT REPORTED NEGATIVE [facility] [employer] Work Phone: Cannabinoid Scrn, Ur Negative NEGATIVE [facility] [employer] Work Phone: Comment on above: (Positive cutoff 50 ng/mL) Cocaine Metabolite, Urine Negative NEGATIVE [facility] Work Phone: Comment on above: (Positive cutoff 300 ng/mL) MDMA, Urine NOT REPORTED NEGATIVE [facility] Work Phone: Methadone Screen, Urine Negative NEGATIVE [facility] [employer] Work Phone: Comment on above: (Positive cutoff 300 ng/mL) Methamphetamine, Urine NOT REPORTED NEGATIVE [facility] Work Phone: Opiates, Urine Negative NEGATIVE [facility] Work Phone: Comment on above: (Positive cutoff 300 ng/mL) Oxycodone Screen, Ur Negative NEGATIVE [facility] [employer] Work Phone: Comment on above: (Positive cutoff 100 ng/mL) Phencyclidine, Urine Negative NEGATIVE [facility] [employer] Work Phone: Comment on above: (Positive cutoff 25 ng/mL) Propoxyphene, Urine NOT REPORTED NEGATIVE [employer] Work Phone: Test Information Assay provides medical screening only. The absence of expected drug(s) and/or metabolite(s) may indicate diluted or adulterated urine, limitations of testing or timing of collection. [employer] Work Phone: Comment on above: Testing for legal pu rposes should be confirmed by another method. To request confirmation of test result, please call the lab within 7 days of sample submission. Tricyclic Antidepressants, Urine NOT REPORTED NEGATIVE [employer] Work Phone: [employer] Phone: Family Medicine Office/Clini c Noteon 03-11-2021 Family Medicine Office/Clinic Note Chief Complaint Depression/Anxiety History of Present Illness Feels mind is racing and 10mg might be too much no SI/HI Review of Systems General Adult ROS Fatigue: No Appetite change: No Weakness: No Cardiovascular Chest pain/pressure: No Palpitations: No EENMT Nasal congestion: No Nasal discharge: No Sore_throat: No Gastrointestinal Abdominal pain: No Constipation: No Diarrhea: No Nausea: No Vomiting: No Genitourinary Decreased urine output: No Dysuria: No Frequency: No Genital irritation: No Hematuria: No Hesitancy: No Impaired urge sensation: No Other Genitourinary: No Polyuria: No Urgency: No Urinary Incontinence: No Hematologic/Lymphati c Musculoskeletal Neurological Headache: No Psychiatric Anxiety: Yes Depression: No Poor sleep quality: No Respiratory Cough: No Shortness_of_breath: No Wheezing: No Physical Exam Vitals & Measurements T: 36.7 ?C (Temporal Artery) HR: 104 (Peripheral) BP: 110/72 SpO2: 97 HT: 163 cm WT: 69.7 kg WT: 69.7 kg (Dosing) BMI: 26.23 General: Alert and oriented, well nourished, no acute distress. psych: Mental status, appearance, behavior, speech appropriate. Alert and oriented to person place and time. Thought coherent. Gait normal, able to ambulate without assistance Skin: no lesions, rashes or open areas Additional Vitals BP Position/Location: Sitting, Left arm Assessment/Plan 1. Anxiety reduce dose f/u in 1 month Orders: FLUoxetine, 1 caps, Oral, Daily, t, # 30 caps, 1 Refill(s), [facility]: [facility] [employer] [facility] Medical Decision Making Chronic conditions NOT treated during this visit that affected my overall medical decision making: [] Treatment plans discussed but not opted for at this time: [] Prescribed medication that requires intensive monitoring for toxicity: [] I have reviewed the patient?s medication list for medication interactions/contrai ndications and/or for upcoming procedures: [yes or no] Time Spent with the Patient I have personally spent [] minutes on this date, directly related to today's patient visit, including pre and post visit work, for this date of service. Time listed does not include time spent on separately billable services. Problem List/Past Medical History Ongoing Historical No qualifying data Medications PROzac 10 mg oral capsule, 10 mg= 1 caps, Oral, Daily, 1 refills Allergies No Known Allergies Social History Alcohol Current, Beer, Wine, 1-2 times per month Substance Abuse Denies All Tobacco Never (less than 100 in lifetime) Use:. Family History Breast cancer: Mother and Grandmother (M).Negative: Grandmother (P). Cardiovascular disease: Father. Diabetes mellitus: Grandmother (P). Hyperlipidemia: Father and Grandfather (M). Hypertension: Father. Diagnostic Results No qualifying data available (XRay) No qualifying data available (CT) No qualifying data available (Ultrasound) No qualifying data available (MRI) Electronically signed by Cindy Amador 03/11/21 13:25 EDT Normal [facility] Family Medicine Office/Clini c Noteon 11-30-2020 Family Medicine Office/Clinic Note Chief Complaint F/u Anxiety History of Present Illness Pt coming in for anxiety medications, appears she has been on prozac and zoloft in the past. PHQ/TANA completed, no SI/HI KAT she was SOB- with chest tightness and headache- labs completed as well as chest xray no findings, PFT was ordered but not completed, reports breathing has improved as well as headaches, she has no further concerns Review of Systems Constitutional: No fevers, chills, sweats Eye: No recent visual problems ENMT: No ear pain, nasal congestion, or sore throat Respiratory: No shortness of breath or cough Cardiovascular: No Chest pain, palpitations, or syncope Gastrointestinal: No nausea, vomiting, or diarrhea Genitourinary: No hematuria or burning Physical Exam Vitals & Measurements T: 36.5 ?C (Temporal Artery) HR: 99 (Peripheral) BP: 110/70 SpO2: 99 HT: 163 cm WT: 69.7 kg WT: 69.7 kg (Dosing) BMI: 26.23 General: Alert and oriented, well nourished, no acute distress. Lungs: Clear to auscultation, non-labored respiration Heart: Normal rate, regular rhythm, no murmur, gallop or edema psych: Mental status, appearance, behavior, speech appropriate. Alert and oriented to person place and time. Thought coherent. Gait normal, able to ambulate without assistance Skin: no lesions, rashes or open areas Additional Vitals Body Mass Index Measured: 26.23 kg/m2 Peripheral Pulse Rate: 99 bpm BP Position/Location: Sitting, Left arm Assessment/Plan 1. Anxiety start prozac slowly f/u in 1 month 2. Depression Orders: FLUoxetine, 1 caps, Oral, Daily, take 1 cap x 2 weeks then increase to 2 caps per day, # 45 caps, 1 Refill(s), Pharmacy: [facility] Medical Decision Making Chronic conditions not treated during this visit that affected my overall medical decision making: [] Treatment plans discussed but not opted for at this time: [] Prescribed medication that requires intensive monitoring for toxicity: [] The medications I have prescribed have been reviewed for medication interactions/contrai ndications and/or for upcoming procedures. Time Spent with the Patient I have personally spent [] minutes on this date, directly related to today's patient visit, including pre and post visit work, for this date of service. Time listed does not include time spent on separately billable services. Problem List/Past Medical History Ongoing Historical No qualifying data Medications PROzac 10 mg oral capsule, 10 mg= 1 caps, Oral, Daily, 1 refills Allergies No Known Allergies Social History Alcohol Current, Beer, Wine, 1-2 times per month Substance Abuse Denies All Tobacco Never (less than 100 in lifetime) Use:. Family History Breast cancer: Mother and Grandmother (M).Negative: Grandmother (P). Cardiovascular disease: Father. Diabetes mellitus: Grandmother (P). Hyperlipidemia: Father and Grandfather (M). Hypertension: Father. Diagnostic Results No qualifying data available (XRay) No qualifying data available (CT) No qualifying data available (Ultrasound) No qualifying data available (MRI) Electronically signed by Cindy Amador 11/30/20 13:27 EST Normal [facility] .eGFRon 08-20-2020 eGFR AA >60 Normal >=60 [facility] Comment on above: Order Comment: Order added by Discern rule Result Comment: Resu lt = 0-14.9 mL/min/1.73 m2 Kidney failure or Dialysis Result = 15-29 mL/min/1.73 m2 Severe decrease in GFR Result = 30-59 mL/min/1.73 m2 Moderate decrease in GFR Result >= 60 mL/min/1.73 m2 Normal or increased GFR Performed By: #### E GFR #### [place] [address] eGFR Non-AA >60 Normal >=60 [facility] Comment on above: Order Comment: Order added by Discern rule Result Comment: Resu lt = 0-14.9 mL/min/1.73 m2 Kidney failure or Dialysis Result = 15-29 mL/min/1.73 m2 Severe decrease in GFR Result = 30-59 mL/min/1.73 m2 Moderate decrease in GFR Result >= 60 mL/min/1.73 m2 Normal or increased GFR Chronic kidney disease is defined as either kidney damage or GFR < 60 mL/min/1.73 m2 for >= 3 months. Kidney damage is defined as pathologic abnormalities or markers of damage including abnormalities in blood or urine tests or imaging studies. This GFR is NOT used for medication dosing. Performed By: #### E GFR #### [address] [address] B12/Folate Lvlon 08-20-2020 Cobalamin (Vitamin B12) [Mass/Vol] 685 pg/mL Normal 180-914 [facility] Comment on above: Performed By: #### B 12FO #### [address] [address] Folate Lvl >22.3 Normal >=5.9 [facility] Comment on above: Result Comment: A WH O Technical Consultation has determined that deficient Folate concentrations are considered to be less than 4 ng/mL. Performed By: #### B 12FO #### [address] [address] CBC w/ Diffon 08-20-2020 Erythrocyte distribution width (RBC) [Ratio] 12.7 % Normal 11.6-14.8 [facility] Comment on above: Performed By: #### C [id number] #### [address] [address] Hematocrit (Bld) [Volume fraction] 34.4 % Low 36.0-46.0 [facility] Comment on above: Performed By: #### C [id number] #### [address] [address] Hemoglobin (Bld) [Mass/Vol] 11.5 g/dL Low 12.0-16.0 [facility] Comment on above: Performed By: #### C [id number] #### [address] [address] MCH (RBC) [Entitic mass] 29.8 pg Normal 27.0-35.0 [facility] Comment on above: Performed By: #### C [id number] #### [address] [address] MCHC 33.5 % Normal 31.0-37.0 [facility] Comment on above: Performed By: #### C [id number] #### [address] [address] MCV (RBC) [Entitic vol] 88.9 fL Normal 80.0-100.0 [facility] Comment on above: Performed By: #### C [id number] #### [address] [address] Platelet 236 x10*3/mcL Normal 150-350 [facility] Comment on above: Performed By: #### C [id number] #### [address] [address] Platelet mean volume (Bld) [Entitic vol] 8.7 fL Normal 6.7-10.6 [facility] Comment on above: Performed By: #### C [id number] #### [address] [address] RBC 3.87 x10*6/mcL Normal 3.80-5.20 [facility] Comment on above: Performed By: #### C [id number] #### [address] [address] WBC 5.6 x10*3/mcL Normal 4.5-11.0 [facility] Comment on above: Performed By: #### C [id number] #### [address] [address] [facility] 08-20-2020 Albumin [Mass/Vol] 4.5 g/dL Normal 3.2-4.9 [facility] Comment on above: Result Comment: [facility] Laboratory updated the methodology used for albumin testing on 05/30/18. Albumin measurement was performed using a bromcresol purple dye-binding assay. Performed By: #### C OMP #### [address] [address] Albumin/Globulin [Mass ratio] 1.4 {ratio} Normal 1.1-2.2 [facility] Comment on above: Performed By: #### C OMP #### [address] [place] [address] Alk Phos 51 IU/L Normal 32-91 [facility] Comment on above: Performed By: #### C OMP #### [address] [place] [address] ALT [Catalytic activity/Vol] 13 U/L Low 14-54 [facility] Comment on above: Performed By: #### C OMP #### [address] [place] [address] Anion gap [Moles/Vol] 12 mmol/L Normal 7-17 [facility] Comment on above: Performed By: #### C OMP #### [address] [address] AST [Catalytic activity/Vol] 13 U/L Low 15-41 [facility] Comment on above: Performed By: #### C OMP #### [address] [address] Bili Total 0.8 mg/dL Normal 0.3-1.2 [facility] Comment on above: Performed By: #### C OMP #### [address] [address] Calcium [Mass/Vol] 8.7 mg/dL Normal 8.5-10.3 [facility] Comment on above: Performed By: #### C OMP #### [address] [address] Chloride [Moles/Vol] 102 mmol/L Normal 98-110 [facility] Comment on above: Performed By: #### C OMP #### [address] [address] CO2 [Moles/Vol] 28 mmol/L Normal 22-32 [facility] Comment on above: Performed By: #### C OMP #### [address] [place] [address] Creatinine [Mass/Vol] 0.79 mg/dL Normal 0.44-1.03 [facility] Comment on above: Performed By: #### C OMP #### [address] [address] Glucose [Mass/Vol] 74 mg/dL Normal 70-99 [facility] Comment on above: Performed By: #### C OMP #### [address] [address] Potassium [Moles/Vol] 3.9 mmol/L Normal 3.4-4.8 [facility] Comment on above: Performed By: #### C OMP #### [address] [address] Protein [Mass/Vol] 7.8 g/dL Normal 6.5-8.1 [facility] Comment on above: Performed By: #### C OMP #### [address] [address] Sodium [Moles/Vol] 138 mmol/L Normal 133-142 [facility] Comment on above: Performed By: #### C OMP #### [address] [address] Urea nitrogen [Mass/Vol] 13 mg/dL Normal 8-26 [facility] Comment on above: Performed By: #### C OMP #### [address] [address] Urea nitrogen/Creatinine [Mass ratio] 16.5 mg/mg Normal 10.0-20.0 [facility] Comment on above: Performed By: #### C OMP #### [address] [address] Diff Autoon 08-20-2020 Baso Absolute 0.1 x10*3/mcL Normal 0.0-0.2 [facility] Comment on above: Performed By: #### . Automated Diff #### [address] [address] Basophils/100 WBC (Bld) 1.0 % Normal 0.0-1.5 [facility] Comment on above: Performed By: #### . Automated Diff #### [address] [place] [address] Eos Absolute 0.2 x10*3/mcL Normal 0.0-0.4 [facility] Comment on above: Performed By: #### . Automated Diff #### [address] [address] Eosinophils/100 WBC (Bld) 3.6 % Normal 0.0-5.4 [facility] Comment on above: Performed By: #### . Automated Diff #### [address] [address] Lymph Absolute 1.8 x10*3/mcL Normal 1.0-4.8 [facility] Comment on above: Performed By: #### . Automated Diff #### [address] [address] Lymphocytes/100 WBC (Bld) 31.6 % Normal 27.2-40.8 [facility] Comment on above: Performed By: #### . Automated Diff #### [address] [address] [place] Absolute 0.5 x10*3/mcL Normal 0.1-1.1 [facility] Comment on above: Performed By: #### . Automated Diff #### [address] [address] Monocytes/100 WBC (Bld) 9.1 % Normal 3.7-11.9 [facility] Comment on above: Performed By: #### . Automated Diff #### [address] [address] Neutro Absolute 3.1 x10*3/mcL Normal 1.8-7.7 [facility] Comment on above: Performed By: #### . Automated Diff #### [address] [address] Neutro Auto 54.7 % Normal 47.2-70.8 [facility] Comment on above: Performed By: #### . Automated Diff #### [address] [address] Ferritinon 08-20-2020 Ferritin Lvl 42.8 ng/mL Normal 11.0-306.8 [facility] Comment on above: Performed By: #### F ERR #### [address] [address] Hgb A1con 08-20-2020 Glucose [Mass/Vol] 103 mg/dL Normal 68-114 [facility] Comment on above: Result Comment: Math ematical Calc approx. The mean gluc equivalency of A1c Performed By: #### C [id number] #### [address] [address] Hgb A1c 5.2 % A1c Normal 4.0-5.6 [facility] Comment on above: Result Comment: Refe rence Range: 4.0 - 5.6 % Normal 5.7 - 6.4 % Pre-Diabetes > 6.5 % Diabetes Performed By: #### C [id number] #### [address] [address] Ironon 08-20-2020 Iron [Mass/Vol] 66 ug/dL Normal 28-170 [facility] Comment on above: Performed By: #### F E #### [address] [address] Lipid Panelon 08-20-2020 Cholesterol in LDL [Mass/Vol] 115 mg/dL High 0-99 [facility] Comment on above: Result Comment: The equation being used in this calculation is LDL = (Chol - HDL) - (Trig / 5) The optimal value of LDL for individual patients may vary. The patient's history of Artherosclerosis and other cardiac risk factors should be considered. Performed By: #### L TAM #### [address] [address] Cardiac Risk 3.3 Normal [facility] Comment on above: Result Comment: Men Women 1/2 Average 3.43 3.27 Average 4.97 4.44 2x Average 9.55 7.05 3x Average 23.99 11.04 Performed By: #### L TAM #### [address] [address] Cholesterol [Mass/Vol] 176 mg/dL Normal 25-199 [facility] Comment on above: Result Comment: 0 - 17 years of age: Desirable 0-170 Borderline High 170-199 High >=200 18 years and older: Acceptable <200 Borderline High 200-239 High >=240 Performed By: #### L TAM #### [facility] [address] [place] [address] Cholesterol in HDL [Mass/Vol] 53.0 mg/dL Normal 40.0-60.0 [facility] Comment on above: Performed By: #### L TAM #### [address] [address] Cholesterol in VLDL [Mass/Vol] 8 mg/dL Normal 8-39 [facility] Comment on above: Performed By: #### L TAM #### [address] [address] Triglyceride [Mass/Vol] 38 mg/dL Normal B [facility] Comment on above: Result Comment: 0 - 17 years of age: Trig 90 - 129 Borderline High Trig => 130 High 18 years and older: Trig 150 - 199 Borderline High Trig 200 - 499 High Trig =>500 Very High Performed By: #### L TAM #### [address] [address] [place] [address] TSH w/ Rflx Free T4on 2019 TSH Qn 1.86 m[IU]/L Normal 0.45-5.33 [facility] Comment on above: Result Comment: Refe rence Ranges for individuals from to 18 years of age were obtained from The Hollie Carpenter Handbook (20 ed) published by [facility]. Reference Ranges for Females: Females, 1st Trimester 0.05 ? 3.7 uIU/mL Females, 2nd Trimester 0.31 ? 4.35 uIU/mL Females, 3rd Trimester 0.41 ? 5.18 uIU/mL Performed By: #### T SHRT4 #### [facility] [address] [place] [address] Vitamin D 25-Hydroxy Totalon 08-20-2020 Vitamin D 25-Hydroxy Total 30 ng/mL Normal 30-100 [facility] Comment on above: Result Comment: Samantha min D 25-Hydroxy Total Reference Range: Deficient: < 20 Insufficient: 20 to < 30 Sufficient: 30 - 100 Upper Safety Limit: > 100 Performed By: #### C [id number] #### [facility] [address] [place] [address] Family Medicine Office/Clini c Noteon 08-19-2020 Family Medicine Office/Clinic Note Chief Complaint SOB History of Present Illness C/o of SOB with chest tightness and headache, has blurred vision at times, left arm goes numb at times, symptoms stared 08/14 had anemia with denies hx of asthma denies pt wonders if could be anemia, or anxiety Review of Systems Constitutional: No fevers, chills, sweats Eye: No recent visual problems ENMT: No ear pain, nasal congestion, or sore throat Respiratory: No shortness of breath or cough Cardiovascular: No Chest pain, palpitations, or syncope Gastrointestinal: No nausea, vomiting, or diarrhea Genitourinary: No hematuria or burning Physical Exam Vitals & Measurements T: 36.7 ?C (Temporal Artery) BP: 98/78 SpO2: 97 HT: 163 cm WT: 65.2 kg DOSE WT: 65.2 kg BMI: 24.54 General: Alert and oriented, well nourished, no acute distress. Lungs: Clear to auscultation, non-labored respiration Heart: Normal rate, regular rhythm, no murmur, gallop or edema Abdomen: Soft, non-tender, non-distended, normal bowel sounds, no masses. psych: Mental status, appearance, behavior, speech appropriate. Alert and oriented to person place and time. Thought coherent. Gait normal, able to ambulate without assistance Skin: no lesions, rashes or open areas Additional Vitals Body Mass Index Measured: 24.54 kg/m2 Peripheral Pulse Rate: 97 bpm BP Position/Location: Sitting, Left arm Assessment/Plan 1. SOB (shortness of breath) f/u after testing consider PFT to r/o asthma Ordered: Complete Blood Count w/ Differential Comprehensive Metabolic Panel Hemoglobin A1c Lipid Panel TSH with Reflex Free T4 Vitamin B12 and Folate Vitamin D 25-Hydroxy Total XR Chest 2 Views 2. Left arm numbness labs soon Ordered: Complete Blood Count w/ Differential Comprehensive Metabolic Panel Hemoglobin A1c Lipid Panel TSH with Reflex Free T4 Vitamin B12 and Folate Vitamin D 25-Hydroxy Total 3. Headache consider MRI if no other testing revealing Ordered: Complete Blood Count w/ Differential Comprehensive Metabolic Panel Hemoglobin A1c Lipid Panel TSH with Reflex Free T4 Vitamin B12 and Folate Vitamin D 25-Hydroxy Total Problem List/Past Medical History Ongoing Historical No qualifying data Medications predniSONE 20 mg oral tablet, 40 mg, 2 tabs, Oral, Daily, Not taking Allergies No Known Allergies Social History Alcohol Current, Beer, Wine, 1-2 times per month Substance Abuse Denies All Tobacco Never (less than 100 in lifetime) Use:. Never (less than 100 in lifetime) Use:. Family History Breast cancer: Mother and Grandmother (M).Negative: Grandmother (P). Cardiovascular disease: Father. Diabetes mellitus: Grandmother (P). Hyperlipidemia: Father and Grandfather (M). Hypertension: Father. Diagnostic Results No qualifying data available (XRay) No qualifying data available (CT) No qualifying data available (Ultrasound) No qualifying data available (MRI) Electronically signed by Cindy Amador 08/19/20 15:37 EDT Normal [facility] Vital Signs Date Time Vital Sign Value Performing Clinician Facility 03-19-2024 08:050400 Body height 167.64 cm [facility] 03-19-2024 08:05-0400 Body mass index (BMI) [Ratio] 26.8 kg/m2 [facility] 03-19-2024 08:05-0400 Body weight 75.29 kg [facility] 03-19-2024 08:05-0400 Diastolic blood pressure 62 mm[Hg] [facility] 03-19-2024 08:05-0400 Heart rate 82 /min [facility] 03-19-2024 08:05-0400 SaO2% (BldA) [Mass fraction] 98 % [facility] 03-19-2024 08:05-0400 Systolic blood pressure 106 mm[Hg] [facility] 12-29-2023 08:30-0500 Body height 167.64 cm [facility] 12-29-2023 08:30-0500 Body mass index (BMI) [Ratio] 26.1 kg/m2 [facility] 12-29-2023 08:30-0500 Body weight 73.48 kg [facility] 12-29-2023 08:30-0500 Diastolic blood pressure 74 mm[Hg] [facility] 12-29-2023 08:30-0500 Heart rate 91 /min [facility] 12-29-2023 08:30-0500 SaO2% (BldA) [Mass fraction] 99 % [facility] 12-29-2023 08:30-0500 Systolic blood pressure 110 mm[Hg] [facility] 11-10-2023 08:30-0500 Body height 137.16 cm Lashell Fernandez Other [employer] [facility] [employer] Other 11-10-2023 08:30-0500 Body mass index (BMI) [Ratio] 41.23 kg/m2 Lashell Fernandez Other [employer] Other 11-10-2023 08:30-0500 Body weight 77.57 kg Lashell Fernandez Other [employer] Other 11-10-2023 08:30-0500 Diastolic blood pressure 76 mm[Hg] Lashell Fernandez Other [employer] Other 11-10-2023 08:30-0500 SaO2% (BldA) [Mass fraction] 98 % Lashell Fernandez Other [employer] Other 11-10-2023 08:30-0500 Systolic blood pressure 112 mm[Hg] Lashell Fernandez Other [employer] Other Encounters Encounter Date Encounter Type Care Provider Facility Start: 03-19-2024 End: 03-19-2024 ambulatory [facility] Work Phone: Start: 03-19-2024 End: 03-19-2024 Patient encounter procedure [facility] Physician [facility] Work Phone: Start: 01-01-2024 End: 01-02-2024 ambulatory LORA KNOTT Not Available Start: 12-29-2023 End: 12-29-2023 Patient encounter procedure [facility] Physician [facility] Work Phone: Start: 11-10-2023 End: 11-10-2023 ambulatory Lashell Fernandez Other [employer] Other Start: 11-10-2023 Office outpatient vi sit 15 minutes Lashell Fernandez [facility] Start: 11-08-2023 End: 11-08-2023 ambulatory Lashell Fernandez Other [employer] Other Start: 11-08-2023 Encounter by irma Fernandez [facility] Start: 11-07-2023 End: 11-07-2023 ambulatory GOPI MAHONEYDAVID Not Available Start: 08-16-2023 End: 08-16-2023 ambulatory Lashell Fernandez Other [employer] Other Start: 08-16-2023 Telephone encounter Lashell kendrick [facility] Start: 08-23-2022 End: 08-24-2022 ambulatory [place] [facility] Start: 08-23-2022 Encounter for gynecological examination (general) (routine) without abnormal findings [facility] Start: 08-23-2022 End: 08-23-2022 Patient encounter procedure [facility] Start: 08-23-2022 End: 08-23-2022 Subsequent hospital visit by physician DIPESH Laboratory Comment on above: Women's annual routi ne gynecological examination Start: 03-28-2022 End: 03-29-2022 ambulatory POLI WILSON [facility] Start: 03-28-2022 End: 03-28-2022 Subsequent hospital visit by physician SILVANA ADORNO LAB DOCTOR Comment on above: Infection of superfi cial incisional site of obstetric surgical wound Start: 03-07-2022 End: 03-09-2022 Evaluation and management of inpatient JAZMÍN C [facility] Start: 03-07-2022 End: [facility]07[facility]20[facility] Start: 02-11-2022 End: [facility]11[facility] Start: 02-10-2022 End: 02-10-2022 [facility] Start: 12-29-2021 End: 12-30-2021 [facility] Start: 12-29-2021 End: 12-29-2021 Subsequent hospital visit by physician SILVANA Herrera OB and BRAKE HOLDER Comment on above: care, subse quent , second trimester; 25 weeks gestation of Start: 10-25-2021 End: 10-25-2021 [facility] Start: 08-24-2021 End: 08-25-2021 [facility] Start: 08-24-2021 End: 08-24-2021 Subsequent hospital visit by physician SILVANA Herrera OB and [employer]RAKE HOL[employer] Comment on above: care, subse quent , first trimester Start: 08-12-2021 End: 08-12-2021 Subsequent hospital visit by physician SILVANA Herrera OB and BRAKE HOLDER Comment on above: Encounter for superv ision of other normal in first trimester Start: 08-20-2020 End: 08-21-2020 ambulatory CINDY LIPSCOMB CLEEMPUT Facility:[facility] Procedures Date Procedure Procedure Detail Performing Clinician Start: 12-29-[address] gtt 3 specimens Jazmín C Stew FELTING MACHINE OPERATOR HELPER - CNM Work Phone: Start: 08-12-2021 Drug screen, qualitate/multi Jazmín Mathias FELTING MACHINE OPERATOR HELPER - CNM Work Phone: Start: 08-12-2021 Urnls dip stick/tabl et rgnt auto w/o microscopy Jazmín Mathias FELTING MACHINE OPERATOR HELPER - CNM Work Phone: Start: 08-12-2021 Antibody screen Start: 08-12-2021 Antibody hiv-1&hiv-2 single result Jazmín Mathias FELTING MACHINE OPERATOR HELPER - CNM Work Phone: Start: 05-23-2019 Microscopic observat ion [Identifier] in Cervix by Cyto stain H/O: section S/P emerge ncy Plan of Treatment Date Care Activity Detail Author Start: 12-30-2031 DTaP/Tdap/Td vaccine (8 - Td or Tdap) DTaP/Tdap/Td vaccine (8 - Td or Tdap) [facility] Start: 12-03-2029 DTaP/Tdap/Td vaccine (7 - Td or Tdap) DTaP/Tdap/Td vaccine (7 - Td or Tdap) [facility] Work Phone: Start: 08-29-2023 End: 08-29-2023 Patient encounter procedure 08/29/2023 Office Visit Obstetrics and Gynecology Kait Garcia DO [address] [place], [place] [id number] [facility] Start: 06-23-2022 Influenza vaccination Flu vacc ine (Season Ended) [facility] Start: 05-23-2022 Influenza vaccination Flu vaccine (# 1) [facility] Start: 05-23-2022 Screening for malign ant neoplasm of cervix [facility] Start: 04-20-2022 End: 04-20-2022 ambulatory 04/20/2022 Visit Obstetrics and Gynecology Kait Garcia DO [address] [place] [address] [facility]etrics [facility] Start: 04-04-2022 End: 04-04-2022 Patient encounter procedure 04/04/2022 Office Visit Obstetrics and Gynecology Jazmín Mathias, FELTING MACHINE OPERATOR HELPER - CNM [address] [place] [address] [facility]etric[facility] Start: 02-10-2022 End: 02-10-2022 Patient encounter procedure 02/10/2022 Routine Obstetrics and Gynecology Jazmín Mathias, FELTING MACHINE OPERATOR HELPER - CN [address] [place] [address] [facility] Start: 02-10-2022 End: 02-10-2022 Professional / ancillary services management 02/10/2022 Ancillary Procedure Obstetrics and Gynecology [facility] Start: 01-27-2022 End: 01-27-2022 Patient encounter procedure 01/27/2022 Routine Obstetrics and Gynecology Jazmín Mathias, FELTING MACHINE OPERATOR HELPER - CN [address] [place] [address] [facility] Start: 01-13-2022 End: 01-13-2022 Patient encounter procedure 01/13/2022 Routine Obstetrics and Gynecology Jazmín Mathias, FELTING MACHINE OPERATOR HELPER - CN [address] [place] [address] [facility] Start: 10-25-2021 End: 10-25-2021 Patient encounter procedure 10/25/2021 Routine Obstetrics and Gynecology Jazmín Mathias, FELTING MACHINE OPERATOR HELPER - CNM [address] [place] [address] [facility] Start: 10-25-2021 End: 10-25-2021 Professional / ancillary services management 10/25/2021 Ancillary Procedure Obstetrics and Gynecology [facility] Start: 09-20-2021 End: 09-20-2021 Patient encounter procedure 09/20/2021 Routine Obstetrics and Gynecology Poli Wilson, EMANUEL - WE[employer] AND CHARGE WORKER [address] [address] [phone] [facility] Start: 08-24-2021 End: 08-24-2021 ambulatory 08/24/2021 Initial Obstetrics and Gynecology Jazmín Mathias, FELTING MACHINE OPERATOR HELPER - CNM [address] [place] [address] [phone] [facility] Start: 07-15-2021 COVID-19 Vaccine (3 - Booster for Pfizer series) COVID-19 Vaccine (3 - Booster for Pfizer series) [facility] Start: 06-23-2021 Influenza vaccination Flu vaccine (# 1) [facility] Start: 04-09-2021 COVID-19 Vaccine (3 - Booster for Pfizer series) COVID-19 Vaccine (3 - Booster for Pfizer series) [facility] Start: 2019 Screening for malign ant neoplasm of cervix HPV (without or with Pap) [facility] Start: 2004 HIV screening HIV screen [facility] Work Phone: Start: 2001 Depression Screen Depression Screen [facility] Start: 1990 Varicella vaccine (1 of 2 - 2-dose childhood series) Varicella vaccine (1 of 2 - 2-dose childhood series) [facility] End: 08-24-2021 C.trachomatis N.gonorrhoeae DNA C.trachomatis N.gonorrhoeae DNA Microbiology Routine care, subsequent , first trimester 1 Occurrences starting 08/24/2021 until 08/24/2021 [facility] Work Phone: Comment on above: 1 Occurrences starti ng 08/24/2021 until 08/24/2021 C.trachomatis N.gonorrhoeae DNA C.trachomatis N.gonorrhoeae DNA Microbiology Routine care, subsequent , first trimester 08/24/2021 3:51 PM EDT [employer] Phone: End: 08-12-2021 Culture, Urine Culture, Urine Microbiology Routine Encounter for supervision of other normal in first trimester 1 Occurrences starting 08/12/2021 until 08/12/2021 [employer] Phone: Comment on above: 1 Occurrences starti ng 08/12/2021 until 08/12/2021 Culture, Urine Culture, Urine Microbiology Routine Encounter for supervision of other normal in first trimester 08/12/2021 5:16 PM EDT [employer] Phone: End: 03-28-2022 Culture, Wound [facility] Phone: Comment on above: 1 Occurrences starti ng 03/28/2022 until 03/28/2022 End: 08-23-2022 Cytopathology procedure, preparation of smear, genital source [facility] Lab Routine Women's annual routine gynecological examination 1 Occurrences starting 08/23/2022 until 08/23/2022 [employer] Phone: Comment on above: 1 Occurrences starti ng 08/23/2022 until 08/23/2022 Progesterone [Mass/volume] in Serum or Plasma [facility] Immunizations Immunization Date Immunization Notes Care Provider Fa cility 12-29-2021 tetanus and diphther ia toxoids, adsorbed, preservative free, for adult use (5 Lf of tetanus toxoid and 2 Lf of diphtheria toxoid) [facility] 12-29-2021 tetanus toxoid, redu winifred diphtheria toxoid, and acellular pertussis vaccine, adsorbed [facility] 02-12-2021 COVID-19, Pfizer, PF , 30mcg/0.3mL [facility] Phone: 01-22-2021 COVID-19, Pfizer, PF , 30mcg/0.3mL [employer] Phone: 01-21-2021 COVID-19 Vaccine Pfi zer - Documentation Purposes Only Lashell Fernandez Other [facility] Payers Date Payer Category Payer Unknown [id number]. [id number] 2021 Unknown [id number] 2020 Unknown [id number] 2020 Unknown 1989 Unknown [id number] 2.16.8 [id number] 1989 Unknown [id number] 2.16. [id number] 1989 Unknown [id number] 2.16. [id number] 1989 Unknown [id number] 2.16. [id number] 1989 Unknown [id number] 2.16. [id number] 1989 Unknown [id number] 2.16.8 [id number] 1989 Unknown [id number] 2.16.8 [id number] 1989 Unknown [id number] 2.16.8 [id number] 1989 Unknown [id number] 2.16.8 [id number] 1989 Unknown [id number] 2.16.8 [id number] 1989 Unknown [id number] 2.16.8 [id number] 1989 Unknown [id number] 2.16.84 [id number] 1989 Unknown [id number] 2.16.84 [id number] Social History Date Type Detail Facility Start: 08-12-2021 End: 03-19-2024 Tobacco smoking status NHIS Never smoker [employer] Phone: Start: 08-12-2021 End: 08-23-2022 Tobacco use and exposure Never used [facility] Start: 08-12-2021 End: 08-23-2022 Alcohol intake Ex-drinker (finding) [employer] Phone: Start: 06-11-2021 [employer] Work Phone: Start: 1990 Sex Assigned At Not on file M [employer] Phone: Start: 02-25-2022 End: 03-07-2022 Exposure to SARS-CoV-2 (event) Not sure [facility] Sex Assigned At Sex Assigned At Bir th [employer] Other Start: 1990 Sex Assigned At Female F [facility] Evaluation note 11-10-2023 Note Date & Type Note Facility 11-10-2023 Evaluation note Encounter Date Diagnosis Assessment Notes Oct, Mild hearing loss (ICD-10 - H91.90) Referral placed for audiology to have a complete evaluation with hearing test, to asses the need for hearing aids. [employer] Other Clinical Note 08-20-2020 Note Date & Type Note Facility 08-20-2020 Note Procedure: Upright P A and lateral views of the chest. Clinical Information: Shortness of breath Comparison: None. Findings: Lungs/pleura: Clear lungs. No pleural effusion or pneumothorax. Heart/mediastinum: Normal. Bones/soft tissue: Grossly normal. IMPRESSION: Normal chest radiographs. Final Dictated by: Yefri Handy MD Dictated DT/TM: 08/20/2020 6:38 pm Signed by: Yefri Handy MD Signed (Electronic Signature): 08/20/2020 6:38 pm (If Report Is Signed, Electronically Signed in Other Vendor System) [facility] Evaluation note Note Date & Type Note Facility Evaluation note Diagnosis Encounter for supervision of other normal in first trimester documented in this encounter [employer] Phone: Evaluation note Note Date & Type Note Facility Evaluation note Diagnosis care, subsequent , first trimester documented in this encounter [employer] Phone: Evaluation note Note Date & Type Note Facility Evaluation note Diagnosis care, subsequent , second trimester 25 weeks gestation of state, incidental documented in this encounter [employer] Phone: Evaluation note Note Date & Type Note Facility Evaluation note Diagnosis Infection of superficial incisional site of obstetric surgical wound documented in this encounter [employer] Phone: Evaluation note Note Date & Type Note Facility Evaluation note Diagnosis Women's annual routine gynecological examination documented in this encounter [employer] Phone: Evaluation note Note Date & Type Note Facility Evaluation note No Information [employer] Other Evaluation note Note Date & Type Note Facility Evaluation note Diagnosis Onset Date Maxillary sinusitis acute Fatigue acute Mood changes acute Unable to lose weight acute [facility] Work Phone: History general Narrative - Reported Note Date & Type Note Facility History general Narrative - Reported Type Medical History Depression Medical History Anxiety Surgical History C- Section Hospitalization History See above [employer] Other Summary Purpose Family History Relationship Condition Age at Onset Recorded Date/T william father Hyperlipidemia Unknown grandparent Malignant neoplasm Unknown Malignant neoplasm of breast Unknown Not Specified Malignant neoplasm of breast Unknown Malignant neoplasm Unknown sister Heart disease Unknown Advance Directives Latest Code Status on File Code Status Date Activated Date Inactivated Comments Full Code 03/07/2022 1:29 PM 03/07/2022 7:37 PM Advance Directive Response Recorded Date/ Time Advance Directives No December 27 4:20pm Reason for Referral Reason *FU 11/16 evaluate -- hearing is worsening Diagnosis 1 Mild hearing loss (H 91.90) Referral Organization [facility] eulogio Referring Provider First Name Lashell Referring Provider Last Name Jim Referring Provider Specialty Nurse Padmat tyrone Referred Organization [facility] Referred Address ,[place],[id number] Referred Provider Specialty Audiologists Referral Priority Routine General Notes Berenice Alarcon 11:45:14 AM >received today, notes locked, ins attached, referral faxed to Jm Clinical Notes [facility] Office Chief Complaint and Reason for Visit Chief Complaint sinus infection Hormone testing Reason for Visit Maxillary sinusitis Fatigue Mood changes Unable to lose weight Additional Source Comments INFORMATION SOURCE (unrecogn ized section and content) DATE CREATED AUTHOR 03/18/2021 [facility] DATE CREATED AUTHOR AUTHOR'S ORGANIZ ATION 08/24/2022 [facility] DATE CREATED AUTHOR AUTHOR'S ORGANIZ ATION 08/30/2022 [facility] DATE CREATED AUTHOR AUTHOR'S ORGANIZ ATION 01/06/2024 [facility] EPIC REASON FOR VISIT (unrecogniz ed section and content) Labs/x-raysdiscuss hearing t estingAudiologist Referral Care Teams (unrecognized sec tion and content) Team Status: Active Member Role Status Dates Lashell Fernandez APRN [employer]-C Primary Care Provider Active Team Status: Inactive Member Role Status Dates Lashell Fernandez APRN NP-C Primary Care Provider, Attending Provider Active Start: December 29, 2023 End: December 29, 2023 Team Status: Inactive Member Role Status Dates Lashell Fernandez APRN [employer]-C Primary Care Provider, Attending Provider Active Start: March 19, 2024 End: March 19, 2024 Goals (unrecognized section and content) Goals may be documented in a n alternate section FOR RECORDS PERTAINING TO PATIENTS WHO ARE OR HAVE BEEN ENROLLED IN A CHEMICAL DEPENDENCY/SUBSTANCEABUSE PROGRAM, SOME INFORMATION MAY BE OMITTED. This clinical summary was aggregated from multiple sources. Caution should be exercised in using it in the provision of clinical care. This summary normalizes information from multiple sources, and as a consequence, information in this document may materially change the coding, format and clinical context of patient data. In addition, data may be omitted in some cases. CLINICAL DECISIONS SHOULD BE BASED ON THE PRIMARY CLINICAL RECORDS. [facility] [employer] [facility]. provides no warranty or guarantee of the accuracy or completeness of information in this document.
[2024-03-26 10:20] LABS: TSH W/ REFLEX FT4 3.119 uIU/mL (0.358-3.740)
[2024-03-27 04:08] LABS: Progesterone 5.4 ng/mL (.)
== END 2024-03-26 07:45 | disposition home or self-care (01) ==
LOC: LAB 07:45
PROVIDERS: PCP Nurse Practitioner Family; Visit Provider Nurse Practitioner Family
DX: R63.8 Other symptoms and signs concerning food and fluid intake (principal); R45.86 Emotional lability; R53.83 Other fatigue
CPT/HCPCS: 36415; 84144; 84402; 84403; 84443

== ENCOUNTER 2024-07-31 15:21 | Outpatient (RCR) | payer OTHER, SELFPAY | END 2024-08-08 13:30 | disposition home or self-care (01) | LOC: PT 15:21 | PROVIDERS: PCP Nurse Practitioner Family; Visit Provider Nurse Practitioner Family | DX: M25.519 Pain in unspecified shoulder (principal) | CPT/HCPCS: 97110; 97112; 97140; 97162 ==